=== PATIENT | female | born 1975 | race Caucasian/White ===

== ENCOUNTER 2016-07-21 06:10 | Day surgery (SDC) | payer OTHER ==
[~2016-07-21] VITALS: Ht 167.6 cm; Wt 57.6 kg
--- NOTE | ~2016-07-21 | S ---
[facility] [place] [address] SURGICAL PATH RPT PROCEDURE Name: SYLVIE ROGER Room #: DEP [facility] M.R.#: [id number] Admission: 07/21/16 Date of : 75 Discharge: 07/22/16 Report #: [id number] Path Case #: [id number] PATHOLOGY REPORT COLLECTION DATE: 07/21/2016 RECEIVED DATE: 07/21/2016 SUBMITTING PHYS: Dr. Reji Nagy OTHER PHYS: Dr. Elian Bull SPECIMEN(S) RECEIVED: A.Left thyroid lobe and isthmus B.Right thyroid lobe * * * * * * * * * * * * FINAL DIAGNOSIS: A. 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 - Background thyroid parenchyma showing mild nodular hyperplasia. B. Thyroid, right thyroid lobe, lobectomy: - Dominant nodules identified in a background of nodular hyperplasia. - Focal C-cell hyperplasia identified, measuring 1 mm in greatest dimension COMMENT: Immunohistochemical stains are performed. (Block A2): HBME: negative for diffuse membranous reactivity within the entire lesion CK19: membranous reactivity present. Co-review (slides A2, A3, immunohistochemistry and underwriting service representative slides of part B): Dr. Imer Smith. (IUV:csd; d/t: 07/24/2016) PATHOLOGIST: Barbara Fung M.D. REPORT ELECTRONICALLY SIGNED BY: Barbara Fung M.D. DATE/TIME: 07/25/2016 16:23 * * * * * * * * * * * * GROSS PATHOLOGY: A. The specimen is received fresh labeled, "Sylvie Roger, left thyroid lobe and isthmus," consists of a lobe of thyroid with isthmus weighing 5.7 grams and measuring 3.0 x 2.5 x 1.0 cm. The specimen is inked with black ink. On serial section, there is a well-defined nodule measuring 1.5 x 1.0 cm. A portion of it is frozen and touch preps are also done and submitted in cassette labeled A1. The specimen is serially sectioned and submitted in cassette labeled [address] [address] SURGICAL PATH RPT PROCEDURE Name: SYLVIE ROGER Room #: DEP [facility] M.R.#: [id number] Admission: 07/21/16 Date of : 75 Discharge: 07/22/16 Report #: [id number] Path Case #: [id number] A2-A5, section of isthmus in A5. (GILES:; d/t: 07/24/16) B. The specimen is received in formalin labeled "Sylvie Roger, right thyroid lobe". Received is a 6 g thyroid lobe measuring 5.1 x 2.4 x 1.2 cm in greatest dimensions. The capsule is intact displaying a slight amount of overlying adhesions. The specimen is inked blue. Sectioning reveals normal red-brown thyroid parenchyma throughout with no grossly distinct nodules or lesions. Alternating sections are submitted in cassettes B1 through B7. (CAA; 07/24/2016) FROZEN SECTION DIAGNOSIS: (Enid Smith M.D.) FSA1, Thyroid, "left thyroid lobe and isthmus": - Follicular lesion. These findings were discussed with Dr. Nagy, and a written report was placed in the patient's chart. ([facility]:mgr; d/t: 07/24/16) Testing performed by [facility] at [facility] [address] [place] [address] CLINICAL HISTORY: Left thyroid nodule, follicular neoplasm thyroid INITIAL CPT CODE(S): A; 69381, 50497, 01793, 14405 B; 86411 Professional services performed by [facility] at [facility] [address] [place] [address] Technical services performed by [facility] at [address] [place] [address], [address], [place] [address]. [facility] [address] [place] [address] PHONE: [phone] DIRECTOR: Jaylen Perez M.D. * * * END OF REPORT * * *
--- NOTE | ~2016-07-21 | O ---
[facility] [place] [address] [place] [address] OPERATIVE REPORT Name: SYLVIE ROGER Demar Room #: DEP [facility]..#: [id number] Admission: 07/21/16 Attend Phys: Reji Nagy MD Discharge: 07/22/16 Date of : 75 Report #: [id number] THIS REPORT FOR: //name// CC: Reji Bull MD DATE OF SERVICE: 07/21/2016 SURGEON: Reji Nagy MD. PREOPERATIVE DIAGNOSES: 1. Suspicious follicular mass, left thyroid. 2. Multinodular thyroid. POSTOPERATIVE DIAGNOSES: 1. Suspicious follicular mass, left thyroid. 2. Multinodular thyroid. OPERATION PERFORMED: 1. Total thyroidectomy. 2. Nerve integrity monitoring times 2 hours. 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 Bull for evaluation of a recently diagnosed thyroid nodule. 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 She had a fellow sister notice a mass in her neck and upon return to the [place], this was examined by ultrasound to Dr. Bull's office showing a 2.3 cm mass in the left thyroid with a smaller subcentimeter nodule on the right. Fine needle aspiration done at [facility] showed a solid mass thyroid follicular cells of moderate cellularity with predominance of microfollicles, few macrofollicles and scant colloid. There were a few Hurthle cells in papillary grooves with overlapping nuclei noted suspicious for a neoplastic growth. Differential diagnosis to include follicular adenoma, follicular carcinoma or possibly follicular variant of papillary carcinoma. Because of these findings, recommendations were made for definitive biopsy. This biopsy that had been done, fine needle aspiration was done without Afirma testing. DESCRIPTION OF PROCEDURE: The patient was brought to the operating room and placed supine on the operating table. After adequate general anesthesia was achieved via endotracheal intubation with a Xomed nerve integrity monitor endotracheal tube, a shoulder was placed and neck was extended. Planned incision was marked out in a relaxed skin tension line above the manubrium and [facility] [address] [place] [address] OPERATIVE REPORT Name: SYLVIE ROGER Room #: DEP [facility] M.R.#: [id number] Admission: 07/21/16 Attend Phys: Reji Nagy MD Discharge: 07/22/16 Date of : 75 Report #: [id number] injected with 1% Xylocaine with 1:100,000 epinephrine. As a separate part of the procedure, the Xomed nerve integrity monitor was applied to the electrodes from the endotracheal tube. Ground electrodes were placed in the soft tissue overlying the sternum and contralateral shoulder. Electrode resistance and impedance was measured and found to be acceptable. Threshold and stimulus intensity parameters were set and the patient was monitored for the entirety of the case of approximately 2 hours in order to locate and protect the recurrent laryngeal nerve. She was then prepped and draped in a sterile fashion. The procedure began with incision through skin and subcutaneous tissue and platysma. Subplatysmal flaps were elevated superiorly and inferiorly. Dissection was made down to the strap muscles. These were divided vertically in the midline and retracted laterally. Dissection began on the left side. The sternohyoid muscle was elevated off the thyroid gland and the middle thyroid vein identified, clamped between Ligaclips and divided. Beginning superiorly, the superior vessels were sequentially identified, clamped between Ligaclips and divided. Beginning inferiorly, the inferior vessels as well were sequentially identified, clamped between Ligaclips and divided. The isthmus was dissected off the trachea and taken to the right of midline. This gland was then rolled on to the trachea. Dissection in the tracheoesophageal groove revealed the recurrent laryngeal nerve in its usual anatomic position. This was tracked superiorly to the cricothyroid joint. Keeping the nerve in direct vision, the gland was then dissected from inferior to superior. The vessels around Rodríguez's ligament were taken down between Ligaclips and divided. The patient's superior parathyroid was attached to the gland. It was able to be dissected on its blood supply and retracted laterally. The inferior parathyroid was found running with the inferior thyroid artery and left alone. The Rodríguez's ligament was taken down sharply with a nerve in view and the lobe was then delivered off the field as specimen to pathology, again confirming a highly cellular follicular mass and permanent diagnosis was deferred to the permanent sections. All this was occurring, the other lobe was dissected again beginning superiorly. The superior vessels were sequentially identified, clamped between Ligaclips and divided. Middle thyroid vein was divided between Ligaclips and the inferior vessels were sequentially identified, clamped between Ligaclips and divided. The gland was rolled from lateral to medial. Dissection in the tracheoesophageal groove revealed the recurrent nerve in its usual anatomic position again tracked superiorly to the cricothyroid joint. Again, on this side, the superior parathyroid was attached to the capsule. It was able to be dissected inferiorly and the inferior parathyroid was running with the inferior thyroid vein and also protected. This lobe was then dissected off the trachea from inferior to superior keeping the recurrent nerve in direct vision. Rodríguez's ligament again was taken down sharply and its feedings vessels were clamped [facility] [address] [place] [address] OPERATIVE REPORT Name: SYLVIE ROGER Room #: DEP [facility]#: [id number] Admission: 07/21/16 Attend Phys: Reji Nagy MD Discharge: 07/22/16 Date of : 75 Report #: [id number] between Ligaclips. This lobe was delivered off the field as specimen to pathology. The wound was then irrigated, hemostasis assured with clip ligature and bipolar cautery. Both nerves were stimulated at the end of the case and found to be intact. The strap muscles were then closed with interrupted 3-0 Vicryl. Prior to that, a 10-Yi Diego drain was placed through a separate stab incision, curled into the wound and connected to bulb suction and sutured in place with 2-0 silk. The platysmal layer was then closed with interrupted 3-0 Vicryl, 4-0 Vicryl deep dermal sutures were placed and a 5-0 running subcuticular Prolene on skin. Mastisol and Steri-Strips were applied with an OpSite for dressing. The patient was then returned to anesthesia, awake without difficulty and returned to recovery in good condition. Sponge and needle counts were correct. There were no complications. Blood loss was less than 20 mL. The patient will be watched overnight for monitoring presuming she does well, discharged to home with plans to follow up me in 2 weeks. 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 DISCHARGE MEDICATIONS: Include Synthroid 100 mcg 1 t.i.d. for 10 days, Tums 500 mg 2 tablets t.i.d., Phenergan suppository 25 mg 1 per rectum q. 4-6 hours p.r.n., hydrocodone/acetaminophen 7.5/325 one to two q. 4-6 hours p.r.n. and Keflex 500 mg 1 b.i.d. for 10 days. She is instructed on light activity and a soft diet. <ELECTRONICALLY SIGNED> By: Reji Nagy MD 07/26/16 1523 1310 [id number] Reji Nagy MD /nt
[~2016-07-21 06:10] MED LIST: VITAMINC500 PO
[2016-07-21 10:00] VITALS: BP 119/74
[2016-07-21] MEDS ORDERED: LORTAB 7.5-3251 EACH PO (13:20)
[2016-07-21] MEDS ORDERED: AMOXICILLIN 50500 M1 PO (13:20)
[2016-07-21] MEDS ORDERED: TUMS CHEWA500 MG/11 PO (13:21)
[2016-07-21] MEDS ORDERED: LEVOTHYROXINE 0.1 MG PO (13:21)
[2016-07-21 15:15] VITALS: BP 96/56
[2016-07-21 17:15] VITALS: BP 109/62
[2016-07-21 20:00] VITALS: BP 100/57
[2016-07-21 21:35] LABS: ALBUMIN 3.1 g/dL (3.4-5.0); CALCIUM 7.7 mg/dL (8.5-10.1); MAGNESIUM 1.4 mg/dL (1.8-2.4)
[2016-07-21 23:14] VITALS: BP 94/69
[2016-07-22 03:05] VITALS: BP 90/49
[2016-07-22 08:00] VITALS: BP 83/47
[2016-07-22 11:52] VITALS: BP 92/51
[2016-07-22 13:40] VITALS: BP 92/51
[2016-07-22 16:49] VITALS: BP 92/51
== END 2016-07-22 14:30 | disposition home or self-care (01) ==
LOC: OR 06:10 → TBA 06:11 → OR 14:01 → 4S 14:46 → OR 07-22 14:30
PROVIDERS: Otolaryngology Plastic Surgery within the Head & Neck
DX: C73 Malignant neoplasm of thyroid gland (principal); E04.2 Nontoxic multinodular goiter
CPT/HCPCS: 50010; 50101; 64031; 65006; 70005